=== PATIENT | female | born 1990 | race Caucasian/White ===

== ENCOUNTER 2024-09-26 16:58 | Inpatient (IN) | payer OTHER ==
[2024-09-26 17:17] VITALS: BMI 22.1
[2024-09-26] MEDS ORDERED: ONDANSETRON *ODT* 4 MG TABLET SL PRN (17:35)
[2024-09-26] MEDS ORDERED: BENZOCAINE/MENTHOL (CHLORASEPTIC ) LOZENGE MM PRN (17:35)
[2024-09-26] MEDS ORDERED: guaiFENesin 600 MG TABLET.ER (FP) PO PRN (17:35)
[2024-09-26] MEDS ORDERED: BISMUTH SUBSALICYLATE 524 MG/30 ML PO PRN (17:35)
[2024-09-26] MEDS ORDERED: DICYCLOMINE HCL 10 MG CAPSULE PO PRN (17:35)
[2024-09-26] MEDS ORDERED: MAG HYDROX/AL HYDROX/SIMETH 30 ML UNIT-DOSE CUP PO PRN (17:35)
[2024-09-26] MEDS ORDERED: NICOTINE POLACRILEX 2 MG GUM BUC PRN (17:35)
[2024-09-26] MEDS ORDERED: IBUPROFEN 400 MG TABLET (FP) PO PRN (17:35)
[2024-09-26] MEDS ORDERED: IBUPROFEN 600 MG TABLET (FP) PO PRN (17:35)
[2024-09-26] MEDS ORDERED: NALOXONE (NARCAN) HCL 4 MG/0.1 ML SPRAY NS PRN (17:35)
[2024-09-26] MEDS ORDERED: P-EPHED 60MG/TRIPROLIDI 2.5MG TABLET PO PRN (17:35)
[2024-09-26] MEDS ORDERED: LOPERAMIDE HCL 2 MG CAPSULE PO PRN (17:35)
[2024-09-26] MEDS ORDERED: BENZONATATE 200 MG CAPSULE PO PRN (17:35)
[2024-09-26] MEDS ORDERED: POLYETHYLENE GLYCOL (HEALTHYLAX) 3350 17 GM PACKET PO PRN (17:35)
[2024-09-26] MEDS ORDERED: NICOTINE POLACRILEX 2 MG LOZENGE BC PRN (17:35)
[2024-09-26] MEDS ORDERED: MAGNESIUM HYDROX 2400MG/30ML ORAL SUSPENSION 30 ML CUP PO PRN (17:35)
[2024-09-26] MEDS ORDERED: ACETAMINOPHEN 325 MG TABLET (FP) PO PRN (17:35)
[2024-09-26] MEDS ORDERED: cloNIDine HCL 0.1 MG TABLET PO PRN (17:37)
[2024-09-26] MEDS: diazePAM 5 MG TABLET PO PRN (18:57)
[2024-09-26] MEDS: METHOCARBAMOL 500 MG TABLET PO PRN (22:33)
[2024-09-26] MEDS: THIAMINE 100 MG TABLET PO SCH (22:33)
[2024-09-26] MEDS: MELATONIN 5 MG TABLETS PO SCH (22:33)
[2024-09-26] MEDS: methaDONE HCL 10 MG TABLET (FOR DETOX USE ONLY) PO ONE (22:34)
[2024-09-27 09:38] VITALS: PULSE 87
[2024-09-27] MEDS: PRENATAL VITAMINS W/ FOLIC ACID TABLET (FP) PO SCH (10:02)
[2024-09-27] MEDS ORDERED: diazePAM 5 MG TABLET PO PRN (10:55)
[2024-09-27 14:47] VITALS: BP 108/69; RESP 16; TEMP 97.1
[2024-09-27] MEDS ORDERED: diazePAM 5 MG TABLET PO SCH (17:00)
[2024-09-28] MEDS ORDERED: diazePAM 5 MG TABLET PO SCH (06:00)
[2024-09-28] MEDS ORDERED: methaDONE HCL 10 MG TABLET (FOR DETOX USE ONLY) PO ONE (10:00)
[2024-09-29] MEDS ORDERED: diazePAM 5 MG TABLET PO SCH (06:00)
[2024-09-30] MEDS ORDERED: diazePAM 5 MG TABLET PO ONE (06:00)
[2024-09-30] MEDS ORDERED: methaDONE HCL 10 MG TABLET (FOR DETOX USE ONLY) PO ONE (10:00)
== END 2024-09-27 15:10 | disposition home or self-care (01) | DRG 897 ==
LOC: YASAS 16:58 → Y6N 18:04
PROVIDERS: ADMIT Allergy & Immunology; ATTEND Allergy & Immunology
PROC: HZ2ZZZZ Detoxification Services for Substance Abuse Treatment (ICD-10-PCS; principal; 2024-09-26)
DX: F11.23 Opioid dependence with withdrawal (principal); F13.20 Sedative, hypnotic or anxiolytic dependence, uncomplicated; F14.20 Cocaine dependence, uncomplicated; F19.282 Other psychoactive substance dependence with psychoactive substance-induced sleep disorder; F12.20 Cannabis dependence, uncomplicated; F17.210 Nicotine dependence, cigarettes, uncomplicated; W49.04XA Ring or other jewelry causing external constriction, initial encounter; Y93.89 Activity, other specified; Y92.89 Other specified places as the place of occurrence of the external cause; Y99.8 Other external cause status
CPT/HCPCS: 80305; 80307; 81025; 93005; 93010

== ENCOUNTER 2024-09-27 11:49 | Emergency (ER) | payer OTHER ==
[2024-09-27 11:57] VITALS: BP 117/90; PULSE 54; RESP 16; TEMP 97.6; BMI 20.5
== END 2024-09-27 13:20 | disposition home or self-care (01) ==
LOC: JERFT 11:49
DX: S60.457A Superficial foreign body of left little finger, initial encounter (principal); W49.04XA Ring or other jewelry causing external constriction, initial encounter
CPT/HCPCS: 99283-25